=== PATIENT | female | born 1935 | race Caucasian/White ===

== ENCOUNTER 2019-09-04 15:15 | Inpatient (IN) ==
[~2019-09-04 15:15] MED LIST: Anticoagulation Consult 1 Each MC ONE
[2019-09-04] MEDS ORDERED: Isovue-370 500 ML BOTTLE IVP ONE (15:38)
[2019-09-04] MEDS ORDERED: Ondansetron 4 MG/2 ML VIAL IVP ONE (15:40)
[2019-09-04] MEDS ORDERED: *HR* FentaNYL (PF) 100 MCG/2 ML VIAL IVP ONE (15:40)
[2019-09-04] MEDS ORDERED: 0.9 % Sodium Chloride 1,000 ML IVC ONE (15:40)
[2019-09-04 16:00] LABS: Bilirubin,Urine Negative (Negative); Blood,Urine Negative (Negative); Clarity,Urine Clear (Clear); Color,Urine Light-Yellow (Yellow); Glucose,Urine (UA) Normal (Normal); Ketones,Urine Negative (Negative); Leukocyte Esterase,Urine Negative (Negative); Nitrite,Urine Negative (Negative); Protein,Urine Negative (Neg-Trace); Specific Gravity,Urine 1.019 (1.010-1.025); Urobilinogen,Urine Normal (Normal)
[2019-09-04 16:04] LABS: Basophils % 0.1 %; Eosinophils % 0.2 %; Hematocrit 29.7 % (35.3-44.9); Hemoglobin 9.3 g/dL (11.5-15.4); Immature Granulocytes % 0.5 % (0-4); Lymphocytes # 3.5 K/mcL (0.6-4.6); Lymphocytes % 26.6 %; Mean Corpuscular HGB Conc 31.3 g/dL (31.6-35.5); Mean Corpuscular Hemoglobin 28.9 pg (28.0-33.3); Mean Corpuscular Volume 92.2 fL (83.0-100.0); Mean Platelet Volume 11.4 fL (9.4-12.4); Monocytes # 1.4 K/mcL (0.0-1.3); Monocytes % 10.5 %; Neutrophils # 8.2 K/mcL (1.6-8.9); Platelet Count 134 K/mcL (140-400); Red Blood Count 3.22 M/mcL (3.82-4.97); Red Cell Distribution Width 16.4 % (11.5-14.5); Segmented Neutrophils % 62.1 %; White Blood Count 13.2 K/mcL (4.3-11.1)
[2019-09-04 16:07] LABS: INR 2.4; Prothrombin Time 27.2 Seconds (9.4-12.1)
[2019-09-04 16:22] LABS: Albumin 3.9 g/dL (3.5-5.7); Albumin/Globulin Ratio 1.3 (1.1-2.2); Bilirubin,Total 0.6 mg/dL (0.3-1.0); Calcium 9.4 mg/dL (8.6-10.3); Potassium 4.6 mEq/L (3.5-5.1); Total Protein 6.9 g/dL (6.4-8.9)
[2019-09-04 16:27] LABS: Platelet Estimate Slight Decrease (Normal); Reactive Lymphocytes Present (Not Present)
[2019-09-04] MEDS ORDERED: MetroNIDAZOLE 500 MG/100 ML 500 MG/100 ML BAG IVPB ONE (17:33)
[2019-09-04] MEDS ORDERED: Acetaminophen 325 MG TABLET PO PRN (17:52)
[2019-09-04] MEDS ORDERED: Naloxone 0.4 MG/ML INJ IVP PRN (17:52)
[2019-09-04] MEDS ORDERED: *HR* HYDROcodone/Acet 5/325 mg TABLET PO PRN (17:52)
[2019-09-04] MEDS ORDERED: Ondansetron 4 MG/2 ML VIAL IVP PRN (17:52)
[2019-09-04] MEDS ORDERED: Warfarin perPT PO PRN (18:00)
[2019-09-04] MEDS: Ringers Solution, Lactated 1,000 ML IVC SCH (20:56)
[2019-09-05] MEDS: MetroNIDAZOLE 500 MG/100 ML 500 MG/100 ML BAG IVPB SCH ×3 (00:04→16:51)
[2019-09-05 05:44] LABS: Hematocrit 27.1 % (35.3-44.9); Hemoglobin 8.2 g/dL (11.5-15.4); Mean Corpuscular HGB Conc 30.3 g/dL (31.6-35.5); Mean Corpuscular Hemoglobin 27.7 pg (28.0-33.3); Mean Corpuscular Volume 91.6 fL (83.0-100.0); Mean Platelet Volume 11.3 fL (9.4-12.4); Platelet Count 128 K/mcL (140-400); Red Blood Count 2.96 M/mcL (3.82-4.97); Red Cell Distribution Width 16.5 % (11.5-14.5); White Blood Count 13.6 K/mcL (4.3-11.1)
[2019-09-05 05:57] LABS: INR 2.4; Prothrombin Time 27.5 Seconds (9.4-12.1)
[2019-09-05 06:05] LABS: Calcium 8.9 mg/dL (8.6-10.3); Magnesium 1.9 mg/dL (1.6-2.6); Potassium 4.4 mEq/L (3.5-5.1)
[2019-09-05 06:11] LABS: Lymphocytes # 3.5 K/mcL (0.6-4.6); Monocytes # 1.1 K/mcL (0.0-1.3); Platelet Estimate Slight Decrease (Normal)
[2019-09-05] MEDS: Ringers Solution, Lactated 1,000 ML IVC SCH (16:50)
[2019-09-05] MEDS ORDERED: *HR* Warfarin 4 MG TABLET PO ONE (18:00)
[2019-09-06] MEDS ORDERED: Melatonin 3 MG TABLET PO ONE (00:05)
[2019-09-06] MEDS: MetroNIDAZOLE 500 MG/100 ML 500 MG/100 ML BAG IVPB SCH ×3 (00:18→18:50)
[2019-09-06 01:44] LABS: Basophils % 0.1 %; Eosinophils % 0.4 %; Hematocrit 26.3 % (35.3-44.9); Immature Granulocytes % 0.7 % (0-4); Lymphocytes # 3.5 K/mcL (0.6-4.6); Mean Corpuscular HGB Conc 30.4 g/dL (31.6-35.5); Monocytes # 1.3 K/mcL (0.0-1.3); Neutrophils # 4.3 K/mcL (1.6-8.9); Platelet Count 131 K/mcL (140-400); Red Blood Count 2.86 M/mcL (3.82-4.97); Red Cell Distribution Width 16.6 % (11.5-14.5); Segmented Neutrophils % 46.8 %; White Blood Count 9.1 K/mcL (4.3-11.1)
[2019-09-06 01:48] LABS: INR 2.7; Prothrombin Time 30.6 Seconds (9.4-12.1)
[2019-09-06 02:05] LABS: Magnesium 1.9 mg/dL (1.6-2.6); Potassium 4.3 mEq/L (3.5-5.1)
[2019-09-06 02:16] LABS: Platelet Estimate Normal (Normal); Reactive Lymphocytes Present (Not Present)
[2019-09-06] MEDS: predniSONE 5 MG TABLET PO SCH (08:17)
[2019-09-06] MEDS ORDERED: *HR* Warfarin 4 MG TABLET PO ONE (18:00)
[2019-09-07] MEDS ORDERED: Melatonin 3 MG TABLET PO ONE (00:26)
[2019-09-07] MEDS: MetroNIDAZOLE 500 MG/100 ML 500 MG/100 ML BAG IVPB SCH (00:45)
[2019-09-07 05:29] LABS: INR 3.3; Prothrombin Time 38.1 Seconds (9.4-12.1)
[2019-09-07 05:37] LABS: Basophils % 0.1 %; Eosinophils % 0.5 %; Hematocrit 25.2 % (35.3-44.9); Hemoglobin 7.7 g/dL (11.5-15.4); Immature Granulocytes % 0.7 % (0-4); Lymphocytes # 3.9 K/mcL (0.6-4.6); Mean Corpuscular HGB Conc 30.6 g/dL (31.6-35.5); Mean Corpuscular Hemoglobin 28.4 pg (28.0-33.3); Mean Platelet Volume 11.1 fL (9.4-12.4); Monocytes # 1.3 K/mcL (0.0-1.3); Monocytes % 15.6 %; Platelet Count 133 K/mcL (140-400); Red Blood Count 2.71 M/mcL (3.82-4.97); Red Cell Distribution Width 16.3 % (11.5-14.5); Segmented Neutrophils % 35.1 %; White Blood Count 8.1 K/mcL (4.3-11.1)
[2019-09-07 05:46] LABS: Neutrophils # 2.8 K/mcL (1.6-8.9)
[2019-09-07 05:48] LABS: Calcium 8.2 mg/dL (8.6-10.3)
[2019-09-07 06:19] LABS: Platelet Estimate Normal (Normal); Reactive Lymphocytes Present (Not Present)
[2019-09-07 06:42] VITALS: BP 125/63
[2019-09-07] MEDS: predniSONE 5 MG TABLET PO SCH (12:11)
== END 2019-09-07 12:38 | disposition home or self-care (01) | DRG 392 ==
LOC: 3ANU 15:15 → EMEROOARM 15:15 → SUATTDRO 18:09 → 3ANU 18:44
PROVIDERS: ADMIT Internal Medicine; ATTEND Internal Medicine

== ENCOUNTER 2020-02-07 07:31 | Observation (INO) ==
[~2020-02-07 07:31] MED LIST changes: +0.9 % Sodium Chloride 1,000 ML IVC ONE; -Anticoagulation Consult 1 Each MC ONE; +Famotidine 20 MG/2 ML VIAL IVP ONE; +Ondansetron 4 MG/2 ML VIAL IVP ONE
[2020-02-07] MEDS ORDERED: CeFAZolin Syr 2,000MG/20 ML 2,000 MG/20 ML SYRINGE IVPB ONE (08:04)
[2020-02-07] MEDS ORDERED: Lidocaine -MPF 2% 2 ML VIAL ONE (09:00)
[2020-02-07] MEDS ORDERED: Ondansetron 4 MG/2 ML VIAL ONE (09:00)
[2020-02-07] MEDS ORDERED: Dexamethasone 4 MG/ML VIAL ONE (09:00)
[2020-02-07] MEDS ORDERED: *HR* Succinylcholine 200 MG/10 ML VIAL IVP ONE (09:00)
[2020-02-07] MEDS ORDERED: *HR* FentaNYL (PF) 100 MCG/2 ML VIAL ONE (09:05)
[2020-02-07] MEDS ORDERED: *HR* Propofol 200 MG/20 ML VIAL IVP ONE (09:05)
[2020-02-07] MEDS ORDERED: *HR* OxyCODONE Immed Rel 5 MG TABLET PO PRN (09:13)
[2020-02-07] MEDS ORDERED: Ondansetron 4 MG/2 ML VIAL IVP PRN (09:13)
[2020-02-07] MEDS ORDERED: *HR* FentaNYL (PF) 100 MCG/2 ML VIAL IVP PRN (09:13)
[2020-02-07] MEDS ORDERED: Nitroglycerin 0.4 MG TAB.SUBL SL PRN (09:13)
[2020-02-07] MEDS ORDERED: Dexamethasone 4 MG/ML VIAL IVP PRN (09:13)
[2020-02-07] MEDS ORDERED: *HR* HYDROcodone/Acet 5/325 mg TABLET PO ONE (09:40)
[2020-02-07] MEDS ORDERED: Aspirin 325 MG TABLET PO ONE (11:04)
[2020-02-07] MEDS ORDERED: Naloxone 0.4 MG/ML INJ IVP PRN (16:28)
[2020-02-07] MEDS ORDERED: Perflutren Lipid Microsphere 1.3 ML in 0.9 % Sodium Chloride 8.7 ML IVP PRN (16:30)
[2020-02-07] MEDS ORDERED: D5% in Water 1,000 ML IVC PRN (16:35)
[2020-02-07] MEDS ORDERED: *HR* Dextrose 50 % in Water (Vial) 50 ML VIAL IVP PRN (16:35)
[2020-02-07] MEDS ORDERED: Dextrose Gel 15 GM/37.5 ML TUBE PO PRN ×2 (16:35)
[2020-02-07 17:26] LABS: INR 1.1; Prothrombin Time 13.2 Seconds (9.4-12.1)
[2020-02-07 17:42] LABS: Calcium 8.8 mg/dL (8.6-10.3); Potassium 5.2 mEq/L (3.5-5.1)
[2020-02-07 17:46] LABS: Hematocrit 31.9 % (35.3-44.9); Hemoglobin 9.5 g/dL (11.5-15.4); Immature Platelets 4.2 % (1.1-6.1); Mean Corpuscular HGB Conc 29.8 g/dL (31.6-35.5); Mean Corpuscular Hemoglobin 29.9 pg (28.0-33.3); Mean Corpuscular Volume 100.3 fL (83.0-100.0); Mean Platelet Volume 11.9 fL (9.4-12.4); Red Blood Count 3.18 M/mcL (3.82-4.97); Red Cell Distribution Width 13.1 % (11.5-14.5); White Blood Count 4.9 K/mcL (4.3-11.1)
[2020-02-07 18:04] LABS: Platelet Count 80 K/mcL (140-400)
[2020-02-07 18:28] LABS: Lymphocytes # 0.8 K/mcL (0.6-4.6); Neutrophils # 4.1 K/mcL (1.6-8.9); Platelet Estimate Decreased (Normal); Reactive Lymphocytes Present (Not Present); Smudge Cells Present (Not Present)
[2020-02-08 00:51] LABS: Hematocrit 30.3 % (35.3-44.9); Hemoglobin 9.7 g/dL (11.5-15.4); Immature Granulocytes % 0.8 % (0-4); Immature Platelets 3.4 % (1.1-6.1); Lymphocytes # 1.9 K/mcL (0.6-4.6); Lymphocytes % 29.9 %; Mean Corpuscular Hemoglobin 31.1 pg (28.0-33.3); Mean Corpuscular Volume 97.1 fL (83.0-100.0); Mean Platelet Volume 11.9 fL (9.4-12.4); Monocytes # 0.7 K/mcL (0.0-1.3); Monocytes % 10.3 %; Neutrophils # 3.8 K/mcL (1.6-8.9); Red Blood Count 3.12 M/mcL (3.82-4.97); White Blood Count 6.4 K/mcL (4.3-11.1)
[2020-02-08 00:53] LABS: INR 1.1
[2020-02-08 00:57] LABS: Platelet Count 92 K/mcL (140-400)
[2020-02-08 01:16] LABS: BUN/Creatinine Ratio 20 (6-26); Blood Urea Nitrogen 32 mg/dL (8-23); Calcium 9.1 mg/dL (8.6-10.3); Carbon Dioxide 24 mEq/L (23-29); Chloride 105 mEq/L (98-107); Chol/HDL Ratio 4.2 (0-4.9); Cholesterol 189 mg/dL (< 200); Glucose 248 mg/dL (70-105); HDL Cholesterol 45 mg/dL (40-59); LDL Cholesterol,Calculated 130 mg/dL (< 100); Osmolality,Calculated 301 (280-300); Potassium 4.7 mEq/L (3.5-5.1); Sodium 138 mEq/L (136-145); Triglycerides 69 mg/dL (< 150); Troponin I < 0.03 ng/mL (< 0.04); eGFR For African Americans 37 (> 60); eGFR For Non-African Americans 31 (> 60)
[2020-02-08 01:24] LABS: Platelet Estimate Decreased (Normal); Reactive Lymphocytes Present (Not Present)
[2020-02-08] MEDS ORDERED: Insulin LISPRO 300 UNITS/3 ML VIAL SUBQ ONE (03:53)
[2020-02-08] MEDS ORDERED: DilTIAZem CD (24hr) 120 MG CAP.ER.24H PO SCH (09:00)
[2020-02-08] MEDS ORDERED: predniSONE 5 MG TABLET PO SCH (09:00)
[2020-02-08] MEDS ORDERED: 0.9 % Sodium Chloride 1,000 ML IVC SCH (09:00)
[2020-02-08 11:05] VITALS: BP 131/68
== END 2020-02-08 15:35 | disposition home health service (06) ==
LOC: SAMDAY 07:31 → 3BNU 07:31
PROVIDERS: ADMIT Student in an Organized Health Care Education/Training Program; ATTEND Student in an Organized Health Care Education/Training Program